=== PATIENT | female | born 2005 | race Two or more races ===

== ENCOUNTER 2025-10-19 18:25 | Emergency (ER) | payer BC ==
[~2025-10-19] VITALS: Ht 167.6 cm; Wt 74.8 kg
[2025-10-19] MEDS ORDERED: ACETAMINOPHEN 650 MG SUPP.RECT RECTAL ONE (19:15)
[2025-10-19] MEDS ORDERED: ACETAMINOPHEN 325 MG TABLET PO ONE (19:30)
== END 2025-10-19 22:24 | disposition home or self-care (01) ==
LOC: EMR PED 18:26 → ER 18:26 → EMR PED 19:19
DX: S00.83XA Contusion of other part of head, initial encounter (principal); S50.311A Abrasion of right elbow, initial encounter; S90.511A Abrasion, right ankle, initial encounter; W18.39XA Other fall on same level, initial encounter; Y93.89 Activity, other specified; Y92.89 Other specified places as the place of occurrence of the external cause; Y99.9 Unspecified external cause status